=== PATIENT | female | born 1990 | race Caucasian/White ===

== ENCOUNTER 2021-02-06 16:05 | Outpatient (CLI) | payer OTHER, SELFPAY ==
[2021-02-06 16:44] LABS: Basophils Absolute Auto 0.1 K/mm3 (0.0-0.1); Basophils Percent Auto 0.6 % (0.2-1.2); Eosinophils Absolute Auto 0.2 K/mm3 (0-0.3); Eosinophils Percent Auto 2.9 % (0-4.4); Hematocrit 34.7 % (37.0-47.0); Hemoglobin 11.9 g/dL (12.0-15.0); Immature Granulocyte Absolute 0.02 K/mm3 (0.00-0.031); Immature Granulocyte Percent A 0.3 % (0-0.5); Lymphocytes Absolute Auto 2.01 K/mm3 (0.9-3.2); Lymphocytes Percent Auto 25.2 % (18.3-44.2); Mean Corpuscular HGB Conc 34.3 g/dl (32-36); Mean Corpuscular Hemoglobin 31.2 pg (26-34); Mean Corpuscular Volume 91.1 fl (80-100); Mean Platelet Volume 9.6 fl (7.4-10.4); Monocytes Absolute Auto 0.6 K/mm3 (0.1-0.6); Monocytes Percent Auto 7.4 % (2.6-8.5); Neutrophils Absolute Auto 5.1 K/mm3 (1.3-6.7); Neutrophils Percent Auto 63.6 % (45.5-73.1); Platelet Count Result 281 k/mm3 (150-375); Red Blood Count 3.81 M/mm3 (4.2-5.4); Red Cell Distribution Width 11.5 % (11.5-14.5)
[2021-02-06 17:56] LABS: Thyroid Stimulating Hormone 0.645 uIU/mL (0.465-4.680)
[2021-02-06 18:06] LABS: HIV 1/2 Ab P24 Ag Result Negative (Negative); Vitamin D 25 Hydroxy 55.2 ng/mL
[2021-02-06 18:24] LABS: Add Urine Microscopic? YES; Appearance Urine Clear (Clear); Bilirubin Urine Negative (Negative); Blood Urine Negative (Negative); Color Urine Yellow (Yellow); Glucose Urine UA Negative (Negative); Ketones Urine Trace mg/dL (Negative); Leukocyte Esterase Ur Negative LEU/UL (NEGATIVE); Nitrate Urine Negative (Negative); Protein Urine Negative (Negative); Urobilinogen Urine Negative mg/dL (<2.0)
[2021-02-06 18:38] LABS: Hepatitis C Virus Antibody Negative (Negative)
[2021-02-06 18:40] LABS: Hepatitis B Surface Antigen Negative (Negative); Rubella IgG Antibody 66.1 IU/ML
[2021-02-07 09:20] LABS: Rapid Plasma Reagin Non-Reactive (NonReactive)
[2021-02-11 09:36] LABS: Hematocrit 35.5 % (35.0-45.0); MCH 32.5 pg (27.0-33.0); MCV 95.8 fL (80.0-100.0)
[2021-02-14 21:11] LABS: CF Result NEGATIVE (NEGATIVE); Ethnicity NG
== END 2021-02-06 16:06 | disposition home or self-care (01) ==
PROVIDERS: PCP Family Medicine; Visit Provider Obstetrics & Gynecology
DX: Z34.90 Encounter for supervision of normal pregnancy, unspecified, unspecified trimester (principal); Z3A.00 Weeks of gestation of pregnancy not specified
CPT/HCPCS: 36415; 81001; 81220; 81243; 82306; 83021; 84443; 85025; 86592; 86703; 86762; 86787; 86803; 86850; 86900; 86901; 87086; 87088; 87340; G0432

== ENCOUNTER 2021-06-03 13:22 | Outpatient (CLI) | payer OTHER, SELFPAY ==
[2021-06-03 14:45] LABS: Basophils Percent Auto 0.3 % (0.2-1.2); Eosinophils Absolute Auto 0.2 K/mm3 (0-0.3); Hematocrit 35.6 % (37.0-47.0); Hemoglobin 12.3 g/dL (12.0-15.0); Immature Granulocyte Absolute 0.06 K/mm3 (0.00-0.031); Immature Granulocyte Percent A 0.6 % (0-0.5); Lymphocytes Absolute Auto 1.63 K/mm3 (0.9-3.2); Lymphocytes Percent Auto 15.8 % (18.3-44.2); Mean Corpuscular HGB Conc 34.6 g/dl (32-36); Mean Corpuscular Hemoglobin 32.1 pg (26-34); Mean Platelet Volume 9.8 fl (7.4-10.4); Monocytes Absolute Auto 0.6 K/mm3 (0.1-0.6); Neutrophils Absolute Auto 7.8 K/mm3 (1.3-6.7); Neutrophils Percent Auto 75.3 % (45.5-73.1); Platelet Count Result 225 k/mm3 (150-375); Red Blood Count 3.83 M/mm3 (4.2-5.4); Red Cell Distribution Width 12.2 % (11.5-14.5); White Blood Count 10.3 K/mm3 (4.5-10.0)
[2021-06-03 14:56] LABS: Glucose 1 Hour PP 50gm Dose 113 mg/dL
== END 2021-06-03 13:23 | disposition home or self-care (01) ==
PROVIDERS: PCP Family Medicine; Visit Provider Obstetrics & Gynecology
DX: Z34.92 Encounter for supervision of normal pregnancy, unspecified, second trimester (principal); Z3A.25 25 weeks gestation of pregnancy
CPT/HCPCS: 36415; 82947; 85025

== ENCOUNTER 2021-07-22 15:29 | Outpatient (CLI) | payer OTHER, SELFPAY ==
[2021-07-22 16:01] LABS: Basophils Absolute Auto 0.1 K/mm3 (0.0-0.1); Basophils Percent Auto 0.6 % (0.2-1.2); Eosinophils Absolute Auto 0.1 K/mm3 (0-0.3); Eosinophils Percent Auto 1.2 % (0-4.4); Hematocrit 37.2 % (37.0-47.0); Hemoglobin 12.9 g/dL (12.0-15.0); Immature Granulocyte Absolute 0.05 K/mm3 (0.00-0.031); Immature Granulocyte Percent A 0.5 % (0-0.5); Lymphocytes Absolute Auto 1.75 K/mm3 (0.9-3.2); Lymphocytes Percent Auto 16.6 % (18.3-44.2); Mean Corpuscular HGB Conc 34.7 g/dl (32-36); Mean Corpuscular Hemoglobin 32.2 pg (26-34); Mean Corpuscular Volume 92.8 fl (80-100); Mean Platelet Volume 10.1 fl (7.4-10.4); Monocytes Absolute Auto 0.7 K/mm3 (0.1-0.6); Monocytes Percent Auto 6.9 % (2.6-8.5); Neutrophils Absolute Auto 7.8 K/mm3 (1.3-6.7); Neutrophils Percent Auto 74.2 % (45.5-73.1); Platelet Count Result 228 k/mm3 (150-375); Red Blood Count 4.01 M/mm3 (4.2-5.4); Red Cell Distribution Width 12.1 % (11.5-14.5); White Blood Count 10.5 K/mm3 (4.5-10.0)
[2021-07-22 16:58] LABS: HIV 1/2 Ab P24 Ag Result Negative (Negative)
[2021-07-23 06:02] LABS: Rapid Plasma Reagin Non-Reactive (NonReactive)
== END 2021-07-22 15:30 | disposition home or self-care (01) ==
PROVIDERS: PCP Family Medicine; Visit Provider Obstetrics & Gynecology
DX: Z34.93 Encounter for supervision of normal pregnancy, unspecified, third trimester (principal); Z3A.32 32 weeks gestation of pregnancy
CPT/HCPCS: 36415; 85025; 86592; 86703; G0432

== ENCOUNTER 2021-09-08 17:01 | Inpatient (IN) | payer OTHER, SELFPAY ==
[2021-09-08] VITALS (7 sets, daily range): BP systolic 116–134; BP diastolic 60–81; PULSE 63–78; RESP 16–18; TEMP 36.6; BMI 35.7
[2021-09-08 17:49] LABS: Basophils Percent Auto 0.4 % (0.2-1.2); Eosinophils Absolute Auto 0.1 K/mm3 (0-0.3); Eosinophils Percent Auto 1.2 % (0-4.4); Hematocrit 36.3 % (37.0-47.0); Hemoglobin 12.4 g/dL (12.0-15.0); Immature Granulocyte Absolute 0.03 K/mm3 (0.00-0.031); Immature Granulocyte Percent A 0.4 % (0-0.5); Mean Corpuscular HGB Conc 34.2 g/dl (32-36); Mean Corpuscular Hemoglobin 31.3 pg (26-34); Mean Corpuscular Volume 91.7 fl (80-100); Mean Platelet Volume 10.5 fl (7.4-10.4); Monocytes Absolute Auto 0.6 K/mm3 (0.1-0.6); Monocytes Percent Auto 6.8 % (2.6-8.5); Neutrophils Absolute Auto 6.1 K/mm3 (1.3-6.7); Neutrophils Percent Auto 72.2 % (45.5-73.1); Platelet Count Result 205 k/mm3 (150-375); Red Blood Count 3.96 M/mm3 (4.2-5.4); Red Cell Distribution Width 12.1 % (11.5-14.5); White Blood Count 8.4 K/mm3 (4.5-10.0)
[2021-09-08] MEDS: DINOPROSTONE 10 MG VAG INSERT VAGINAL (17:56)
--- NOTE | 2021-09-08 17:58 | WPDANESEPP ---
Anes - Eval Pre Procedure Date/Time: 09/08/21 17:58 Pre Op Diagnosis: Induction of Labor Patient Data Age: 31 Gender: F Height: 1.65 m Weight: 97.5 kg Allergies Allergy/AdvReac Type Severity Reaction Status Date / Time No Known Allergies Allergy Mild Verified 09/04/21 15:05 Home Medications Medication Instructions Recorded Confirmed Type vitamin no.[id number] 1 cap PO DAILY #90 cap 01/22/21 08/27/21 Rx 28 mg iron-1 mg-200 mg capsule Laboratory Tests 09/08/21 09/08/21 17:39 17:39 WBC 8.4 K/mm3 K/mm3 (4.5-10.0) RBC 3.96 M/mm3 L M/mm3 (4.2-5.4) Hgb 12.4 g/dL g/dL (12.0-15.0) Hct 36.3 % L % (37.0-47.0) MCV 91.7 fl fl (80-100) MCH 31.3 pg pg (26-34) MCHC 34.2 g/dl g/dl (32-36) RDW 12.1 % % (11.5-14.5) Plt Count 205 k/mm3 k/mm3 (150-375) MPV 10.5 fl H fl (7.4-10.4) Immature Gran % (Auto) 0.4 % % (0-0.5) Neut % (Auto) 72.2 % % (45.5-73.1) Lymph % (Auto) 19.0 % % (18.3-44.2) [place] % (Auto) 6.8 % % (2.6-8.5) Eos % (Auto) 1.2 % % (0-4.4) Baso % (Auto) 0.4 % % (0.2-1.2) Lymph # (Auto) 1.60 K/mm3 K/mm3 (0.9-3.2) [place] # (Auto) 0.6 K/mm3 K/mm3 (0.1-0.6) Eos # (Auto) 0.1 K/mm3 K/mm3 (0-0.3) Baso # (Auto) 0.0 K/mm3 K/mm3 (0.0-0.1) Abs Immat Gran (auto) 0.03 K/mm3 K/mm3 (0.00-0.031) Absolute Neuts (auto) 6.1 K/mm3 K/mm3 (1.3-6.7) Absolute Nucleated RBC 0.0 K/mm3 K/mm3 (0.0-0.012) Nucleated RBC % 0.0 % % (0.0-0.2) RPR Pending Patient hx anesthesia problems: none Family hx anesthesia problems: none Results Review: All pre-operative results and documents have been reviewed as part of the pre-operative evaluation. [facility] Family History Family History Grandparent Cerebrovascular accident, Onset Age: 52 Social History Social History Smoking status: Never smoker Second hand tobacco smoke exposure: No Smoking end date: 06/15/11 Alcohol intake: current Substance use: never Spiritual care concerns: No Exam Day of Procedure 09/08/21 17:58 Patient weight: obese Heart: regular rate and rhythm Lungs: clear to auscultation Airway: Mallampati scale class II Neurological: alert and oriented
[2021-09-08] MEDS: diphenhydrAMINE HCl INJ 50 MG/ML VIAL 25 MG IV PUSH (23:23)
[2021-09-09] VITALS (121 sets, daily range): BP systolic 98–160; BP diastolic 47–118; PULSE 56–156; RESP 16–18; TEMP 36.3–36.8; O2SAT 93–100
[2021-09-09] MEDS: fentaNYL CITRATE INJ (*CRX) 100 MCG/2 ML VIAL 50 MCG IV PUSH ×2 (02:10→04:36)
[2021-09-09] MEDS: fentaNYL CITRATE INJ (*CRX) 100 MCG/2 ML VIAL IV PUSH (06:53)
[2021-09-09] MEDS: LACTATED RINGERS 1,000 ML 125 ML IV CONT ×2 (06:53→07:37)
[2021-09-09] MEDS: OXYTOCIN 30 UNITS/NS 500 ML 30 UNITS/500 ML BAG 999 UNITS IV CONT (12:47)
[2021-09-09 13:00] LABS: Rapid Plasma Reagin Non-Reactive (NonReactive)
[2021-09-09] MEDS: OXYTOCIN 30 UNITS/NS 500 ML 30 UNITS/500 ML BAG 125 UNITS IV CONT (13:27)
[2021-09-09] MEDS: WITCH HAZEL 40 PADS 1 PAD TOPICAL (15:28)
[2021-09-09] MEDS: BENZOCAINE 20% AER SPR (*SP) 56 GM CAN 1 SPRAY TOPICAL (15:28)
--- NOTE | 2021-09-09 15:42 | PC.NURSE ---
Patient transferred to post room #283 per wheelchair from labor and delivery. Support person present. Oriented to unit, room, information board, rooming in, admission packet and security measures. Patient verbalizes understanding.
[2021-09-09] MEDS: IBUPROFEN 600 MG TABLET PO (18:45)
[2021-09-09] MEDS: ACETAMINOPHEN 325 MG TABLET 650 MG PO (18:46)
[2021-09-10] MEDS: IBUPROFEN 600 MG TABLET PO ×4 (01:56→22:27)
[2021-09-10 02:23] VITALS: BP 114/61; PULSE 73; RESP 20; TEMP 36.8
[2021-09-10 04:40] VITALS: BP 112/88; PULSE 88; RESP 18; TEMP 36.4
[2021-09-10 05:43] LABS: Hematocrit 30.6 % (37.0-47.0); Hemoglobin 10.4 g/dL (12.0-15.0)
--- NOTE | 2021-09-10 06:35 | PM.IMHP ---
H&P: HPI History of Present Illness Date/Time: 09/09/21 06:35 Patient is a G1 at 40 4/7 weeks admitted for [facility] for postdates. PNC significant for marginal cord insertion which she has been followed with serial ultrasounds for growth which has been appropriate growth. Labs reviewed. GBS neg. Chief Complaint: Induction of labor Review of Systems Review of Systems: All systems reviewed & are unremarkable except as noted in HPI and below Constitutional: Constitutional: Reports no additional constitutional complaints and Denies headache(s) Eyes: Eyes: Denies spots in vision ENT: Reports system reviewed and no additional complaints, except as documented and Denies headache(s) Cardiovascular: Cardiovascular: Denies chest pain and Denies dyspnea Respiratory: Respiratory: Denies dyspnea Gastrointestinal: Gastrointestinal: Reports no additional gastrointestinal complaints Genitourinary: Genitourinary: Reports amenorrhea Musculoskeletal: Musculoskeletal: Reports no additional musculoskeletal complaints Integumentary/Breasts: Skin/Breast: Denies breast mass and Denies rash Neurologic: Denies headache(s) Psychiatric: Psychiatric: Reports no additional psychiatric complaints [facility] Family History Family History Grandparent Cerebrovascular accident, Onset Age: 52 Social History Social History Smoking status: Never smoker Second hand tobacco smoke exposure: No Smoking end date: 06/15/11 Alcohol intake: current Substance use: never Spiritual care concerns: No Meds Home Medications and Allergies Home Medications Medication Instructions Recorded Confirmed Type vitamin no.[id number] 1 cap PO DAILY #90 cap 01/22/21 08/27/21 Rx 28 mg iron-1 mg-200 mg capsule Allergies Allergy/AdvReac Type Severity Reaction Status Date / Time No Known Allergies Allergy Mild Verified 09/04/21 15:05 Vital Signs Vital Signs - 24 hr 09/09/21 07:00 09/09/21 07:02 09/09/21 07:03 Temperature Pulse Rate 84 78 82 Respiratory Rate 18 Blood Pressure 160/97 H 138/75 Pulse Oximetry 93 09/09/21 07:04 09/09/21 07:05 09/09/21 07:09 Temperature Pulse Rate 87 82 Respiratory Rate Blood Pressure 145/97 H 150/88 H Pulse Oximetry 99 98 09/09/21 07:10 09/09/21 07:13 09/09/21 07:14 Temperature Pulse Rate 72 88 86 Respiratory Rate Blood Pressure 141/100 H 143/70 H 145/66 H Pulse Oximetry 98 09/09/21 07:16 09/09/21 07:19 09/09/21 07:22 Temperature Pulse Rate 81 77 78 Respiratory Rate Blood Pressure 150/83 H 131/61 134/84 Pulse Oximetry 100 09/09/21 07:24 09/09/21 07:25 09/09/21 07:28 Temperature Pulse Rate 75 74 Respiratory Rate Blood Pressure 117/69 141/76 H Pulse Oximetry 99 09/09/21 07:29 09/09/21 07:31 09/09/21 07:34 Temperature Pulse Rate 80 83 Respiratory Rate Blood Pressure 138/67 114/80 Pulse Oximetry 99 99 09/09/21 07:37 09/09/21 07:39 09/09/21 07:40 Temperature Pulse Rate 90 86 Respiratory Rate Blood Pressure 145/75 H 152/78 H Pulse Oximetry 98 09/09/21 07:43 09/09/21 07:44 09/09/21 07:46 Temperature Pulse Rate 75 156 H Respiratory Rate Blood Pressure 142/86 H 117/87 Pulse Oximetry 98 09/09/21 07:49 09/09/21 07:52 09/09/21 07:54 Temperature Pulse Rate 85 81 Respiratory Rate Blood Pressure 144/74 H 144/72 H Pulse Oximetry 99 98 09/09/21 07:55 09/09/21 07:58 09/09/21 07:59 Temperature Pulse Rate 74 84 Respiratory Rate Blood Pressure 144/74 H 137/81 Pulse Oximetry 99 09/09/21 08:01 09/09/21 08:04 09/09/21 08:09 Temperature Pulse Rate 76 76 Respiratory Rate Blood Pressure 109/82 135/78 Pulse Oximetry 100 98 09/09/21 08:14 09/09/21 08:16 09/09/21 08:19 Temperature Pulse Rate 69 Respiratory Rate
--- NOTE | 2021-09-10 06:42 | PM.OBPRVD ---
OB - Delivery Note Procedure Delivery date: 09/09/21 Procedure: Spontaneous vaginal delivery Events: Other (Marginal cord insertion) Intrapartal Events: Decelerations Induction method: Per Misoprostol Protocol Delivery monitor: External FHT Route of delivery: vacuum extraction Indication for instrumentation: nonreassuring FHR tracing Episiotomy description: Midline Delivery repair: vicryl Specimen: Yes (Placenta and cord for marginal cord insertion) Quantitative Blood Loss (ml): 200 Anesthesia type: Epidural Disposition: Floor Complications: None Narrative: Patient admitted on evening of 09/08/21 for medical induction of labor for post dates, Her cervix was 1 cm/50% -3 on admission. She had cervidil placed. She progressed into active labor on the cervidil. She had spontaneous rupture of membranes. On the morning of 09/09 she was 9 cm. She did not get pitocin. She progressed to complete. Second stage of labor significant for decelerations and bradycardia episode therefore a vacuum was placed. The station was +2. The vacuum was placed and came off once. With the next contraction it was placed again and the head was at the perineum, the vacuum was removed. An episiotomy was performed to allow room. The vacuum was placed and the infants head delivered. The nose and mouth were suctioned with the bulb. The rest of the infant was delivered. Terminal meconium noted. The was placed on maternal abdomen, vigorously crying. Delayed cord clamping for 45 seconds. Cord blood and cord gases obtained. The placenta delivered spontaneously and noted to be intact and marginal cord insertion noted. The episiotomy was repaired with 3.0 vicryl. Patient tolerated procedure well. Baby Date of : 09/09/21 Time of : 12:42 Weeks of gestation at delivery: 40 Infant gender: Female Weight (pounds): 6 Weight (ounces): 12 presentation: vertex (MYRNA) position: Left Occiput Anterior Placenta delivery description: Spontaneous Cord Vessel Description: 3 Vessels, Clamped/Cut and Delayed Cord Clamping score one minute: 8 score five minutes: 9 AMG Delivery Billing Delivery Delivery: Delivery Charge
[2021-09-10 07:35] VITALS: BP 107/65; PULSE 72; RESP 20; TEMP 36.7; O2SAT 98
--- NOTE | 2021-09-10 09:00 | PC.NURSE ---
PT introductions made and plan of care discussed per post vaginal delivery, pain management, breast feeding, daily care activities. PT received such instructions this shift via one to one discussion, mom baby care guide and demonstrations this shift. PT and spouse both recipients of such instructions and no barriers to learning identified at this time. PT verbalized understanding of such care.
[2021-09-10] MEDS: MULTIVIT/MIN/PREN/FOL AC/IRON TABLET 1 TAB PO (09:20)
[2021-09-10] MEDS: ACETAMINOPHEN 325 MG TABLET 650 MG PO ×3 (09:20→22:27)
[2021-09-10] MEDS: DOCUSATE SODIUM 100 MG CAPSULE PO ×2 (09:20→16:23)
[2021-09-10 09:25] VITALS: PULSE 72; RESP 20; O2SAT 98
--- NOTE | 2021-09-10 09:55 | WPDANLDPN2 ---
Anes-Prog Note L&D Date/Time: 09/10/21 09:55 Comfortable throughout: labor and delivery Neuraxial method: epidural Epidural/Spinal procedure site: clean & non-tender Neuro status: Neuro function grossly intact. Cardiovascular status: normal Respiratory status: normal Airway patency: baseline Mental status: baseline Post-Op hydration status: normal Vital Signs: Last Vital Signs Temp 98.1 F 09/10/21 07:35 Pulse 72 09/10/21 07:35 Resp 20 09/10/21 07:35 BP 107/65 09/10/21 07:35 Pulse Ox 98 09/10/21 07:35 Pain score (VAS): 0 I/O: Intake & Output 09/09/21 09/10/21 09/10/21 23:59 07:59 15:59 Intake Total 500 Balance 500 Post-procedural complaints: none Patient feedback: Patient satisfied with anesthetic care.
[2021-09-10 11:51] VITALS: BP 115/65; PULSE 77; RESP 18; TEMP 36.4; O2SAT 98
--- NOTE | 2021-09-10 16:04 | PC.NURSE ---
[id number] Introductions were made and mother led the conversation with regards to her experience feeding her baby and states she is latching infant with no discomfort with exception. Reminded parents to use good handwashing to prevent infection. has had appropriate feedings in the past 24 hours and meets the outcomes for weight, output and jaundice. Mother states she feels confident to continue effectively her at home. Reviewed production of human milk, transition of milk, signs of adequate intake and engorgement prevention/relief and when to call the infant care provider using the mom and baby guide. Reviewed medications mother is taking with information provided by [facility], community resources and outpatient services as listed in the mom and baby guide/[facility] website. Reinforced watching for feeding cues with responsive feeding and how to stimulate infant to initiate feeding three hours from the start of the last feeding. Mother voiced understanding of information shared. Reported to primary RN.
[2021-09-10 19:00] VITALS: BP 118/60; PULSE 75; RESP 16; TEMP 36.8
[2021-09-11 07:20] VITALS: BP 137/89; PULSE 82; RESP 18; TEMP 35.7; O2SAT 98
[2021-09-11] MEDS: ACETAMINOPHEN 325 MG TABLET 650 MG PO (07:21)
[2021-09-11] MEDS: DOCUSATE SODIUM 100 MG CAPSULE PO (07:21)
[2021-09-11] MEDS: IBUPROFEN 600 MG TABLET PO (07:22)
--- NOTE | 2021-09-11 07:26 | P.PNOB_ITS ---
OB - PN: Subj Subjective Date/time seen: 09/10/21 0820 Patient comments: pain well controlled, tolerating diet and other (Decreasing lochia.) baby status: doing well and nursing well [place] feeding status: exclusively breast feeding OB - PN: Obj Data Labs CBC & Chem 7: 09/10/21 04:37 OB - PN A/P Plan day: 1 Plan: routine care Comments: Patient doing well. Time Spent With Patient Time: Total time spent is greater than 50% in coordination of care (as documented) at patient's floor/unit and/or counseling patient: Exam Psych: Affect: normal affect Other: Abd: fundus firm below umbilicus, nontender Perineum: healing Ext: nontender
--- NOTE | 2021-09-11 07:26 | PM.OBPNVD ---
OB - PN: Subj Subjective Date/time seen: 09/11/21 07:26 She did have a BM no problems. Patient comments: pain well controlled, tolerating diet and other (Decreasing lochia.) Startex baby status: doing well and nursing well feeding status: exclusively breast feeding OB - PN: Obj Data Labs CBC & Chem 7: 09/10/21 04:37 OB - PN A/P Plan day: 2 Plan: discharge home and other Comments: Patient doing well. Follow up 4-6 weeks. Discharge instructions provided. Time Spent With Patient Time: Total time spent is greater than 50% in coordination of care (as documented) at patient's floor/unit and/or counseling patient: Time with patient: less than 15 minutes Exam Psych: Affect: normal affect Other: Abd: fundus firm below umbilicus, nontender Perineum: healing Ext: nontender
--- NOTE | 2021-09-11 07:27 | P.DS_ITS ---
DS: Admitting Diagnosis Discharge Date 09/11/21 Admitting Diagnosis Medical induction of labor OB - DS: Summary Hospital Course Hospital Course: Patient admitted on 09/08/21 for MIL post dates. She had cervidil placed and progressed into labor. She had SROM. She had a vaccuum assisted vaginal delivery for decelerations. She did well . She had adequate pain control on day one and was ambulating well. Baby was well. Lochia had decreased. She did have a bowel movement prior to discharge. Discharge precautions discussed. OB Procedures : Ultrasound OB Procedures Intrapartum: Spontaneous Vag Delivery OB Procedures: : None Peripartum Data Infant Delivery Method: Assisted Delivery (Vacuum assisted vaginal delivery) Episiotomy description: Midline complications: none Status at Discharge Functional status at discharge: independent ambulation Time Spent with Patient Time attestation: Total time spent providing and/or coordinating discharge services: Exam Const: General: cooperative Orientation/consciousness: oriented to person, oriented to place and oriented to time HENMT: General nose exam: Normal external nose present Eyes: General: appearance normal, both eyes and all related structures Resp: Effort & Inspection: normal respiratory effort GI: Inspection: normal to inspection : External Female Exam: normal external appearance Other: Perineum healing Skin: General skin exam: normal color Neuro: General: oriented to person, oriented to place and oriented to time Extrem: General: normal to inspection and no calf tenderness Psych: Appearance: grossly normal Mental Status: mental status grossly normal DS: Data Data Completed and Pending Pending studies at discharge: Pending at discharge 09/09/21 13:55 Surgical [PTH] Routine Discharge Plan Discharge Attending physician on discharge: Flynn Cummins Consulting providers: Chiara Norwood Discharging Clinician: Flynn Cummins Anticipated Discharge Date/Time: 09/11/21 07:35 Patient Disposition: Home, Self-Care Activity: may shower, no straining and pelvic rest Diet: regular Discharge Instructions: Pelvic rest for 4-6 weeks. May take over the counter Ibuprofen or Tylenol for pain. Call if saturating more than a pad an hour, leg redness, pain and swelling, temperature>100.4. No strenuous activity. Patient Instructions: Antibiotic Form Stand Alone Forms: General Discharge Information Follow-up/Referrals: Flynn Cummins MD [Physician] - Call for Appointment Discharge Medications: Continued PRACTICE COORDINATOR-PNV-DHA 28 mg iron- 1 mg-200 mg capsule 1 cap PO DAILY Qty: 90 RF: 2 Date of admission: 09/08/21 17:01 Primary Care Provider: Fede Rangel Admitting Provider: Flynn Cummins Attending physician on admission: Flynn Cummins Condition: Stable
--- NOTE | 2021-09-11 08:46 | PC.NURSE ---
On 09/11/21, the student, Aureliano Carranza, provided care and [facility]. I have reviewed the student's documentation and agree with the findings.
--- NOTE | 2021-09-11 09:00 | PC.NURSE ---
Patient instructed to view the discharge video Mother & Baby Care, The First Two Weeks . Patient was given the opportunity and encouraged to ask questions. Patient verbalized understanding of information shared and has been given the mother/baby guide for home reference.
--- NOTE | 2021-09-11 16:16 | PC.NURSE ---
[id number] re-introductions were made and mother led the conversation with regards to her experience feeding her baby. Reminded parents to use good handwashing to prevent infection. has had appropriate feedings in the past 24 hours and meets the outcomes for weight, output and jaundice. Mother states she feels confident to continue effectively her infant at home. Reviewed production of human milk, transition of milk, signs of adequate intake and engorgement prevention/relief and when to call the infant care provider using the mom and baby guide]. Reviewed medications mother is taking with information provided by [[facility]], community resources and outpatient services as listed in the mom and baby guide/[facility] website. Reinforced watching for feeding cues with responsive feeding and how to stimulate infant to initiate feeding three hours from the start of the last feeding. Mother voiced understanding of information shared. Reported to primary RN.
--- NOTE | 2021-09-11 16:17 | PC.NURSE ---
[id number] Re-introductions were made and mother led the conversation with regards to her experience feeding her baby. Reminded parents to use good handwashing to prevent infection. has had appropriate feedings in the past 24 hours and meets the outcomes for weight, output and jaundice. Mother states she feels confident to continue effectively her infant at home. Reviewed production of human milk, transition of milk, signs of adequate intake and engorgement prevention/relief and when to call the infant care provider using the mom and baby guide. With [facility] RN assistance mother's personal pump was reviewed and mother encouraged to breastfeed her baby and start pumping 3-4 weeks from now. Reviewed community resources and outpatient services as listed in the mom and baby guide/[facility] website. Reinforced watching for feeding cues with responsive feeding and how to stimulate to initiate feeding three hours from the start of the last feeding. Mother voiced understanding of information shared and father of baby is actively involved. Reported to primary RN.
[2021-09-12 09:49] VITALS: BP 126/81; PULSE 80; RESP 20; TEMP 36.8; O2SAT 100
== END 2021-09-11 11:30 | disposition home or self-care (01) | DRG 807 ==
LOC: ANHLDR 17:07 → ANHOB2 09-09 15:45
PROVIDERS: Admitting Provider Obstetrics & Gynecology; PCP Family Medicine; Visit Provider Obstetrics & Gynecology
DX: O43.123 Velamentous insertion of umbilical cord, third trimester (principal); Z37.0 Single live birth; O76 Abnormality in fetal heart rate and rhythm complicating labor and delivery; O77.0 Labor and delivery complicated by meconium in amniotic fluid; Z3A.40 40 weeks gestation of pregnancy
CPT/HCPCS: 36415; 85014; 85018; 85025; 86592; 86850; 86900; 86901; 88307; A9270; J1200; J2590; J2795; J3010; J7120

== ENCOUNTER 2022-04-15 16:51 | Outpatient (CLI) | payer OTHER, SELFPAY ==
[2022-04-15 17:47] LABS: T4 Thyroxine 7.15 ug/dL (5.53-11.0)
== END 2022-04-15 16:52 | disposition home or self-care (01) ==
LOC: ANHLAB 16:53
PROVIDERS: PCP Family Medicine; Visit Provider Obstetrics & Gynecology
DX: F53.0 Postpartum depression (principal)
CPT/HCPCS: 36415; 82306; 84436; 84443

== ENCOUNTER 2023-05-21 14:54 | Outpatient (CLI) | payer OTHER, SELFPAY ==
[2023-05-21 18:14] LABS: Free T4 Free Thyroxine 1.06 ng/mL (0.78-2.19)
== END 2023-05-21 14:55 | disposition home or self-care (01) ==
LOC: ANHLAB 15:01
PROVIDERS: PCP Family Medicine; Visit Provider Advanced Practice Midwife
DX: F41.1 Generalized anxiety disorder (principal)
CPT/HCPCS: 36415; 84439; 84443